=== PATIENT | male | born 1945 | race Caucasian/White ===

== ENCOUNTER 2016-11-04 13:53 | Emergency (ER) | payer MEDICARE, OTHER ==
[~2016-11-04] VITALS: Ht 172.7 cm; Wt 102.1 kg
--- NOTE | 2016-11-04 15:40 | Diagnostic Imaging Report ---
Indication: Cough Technique: One view of the chest Comparison: none Findings: The heart is enlarged. Lungs and pleural spaces are clear. Impression: Cardiomegaly. No acute process
[2016-11-04 15:48] VITALS: BP 65/86
[2016-11-04 15:51] LABS: BASOPHILS % (AUTO) 1.2 % (0.0-2.0); EOSINOPHILS % (AUTO) 2.2 % (0.0-3.0); LYMPHOCYTES % (AUTO) 9.4 % (20.0-45.0); MEAN CORPUSCULAR HEMOGLOBIN 29.2 PG (27.0-31.0); MEAN CORPUSCULAR HGB CONC 31.9 G/DL (32.0-36.0); MEAN CORPUSCULAR VOLUME 92 FL (80-99); MEAN PLATELET VOLUME 7.2 FL (6.5-10.1); MONOCYTES % (AUTO) 13.3 % (1.0-10.0); NEUTROPHILS % (AUTO) 73.9 % (45.0-75.0); PLATELET COUNT 231 K/UL (150-450); RED BLOOD COUNT 3.01 M/UL (4.70-6.10); RED CELL DISTRIBUTION WIDTH 13.1 % (11.6-14.8); WHITE BLOOD COUNT 5.4 K/UL (4.8-10.8)
[2016-11-04 16:07] LABS: ALBUMIN/GLOBULIN RATIO 1.2 (1.0-2.7); CALCIUM 7.1 mg/dL (8.6-10.2); POTASSIUM 4.8 mEQ/L (3.4-4.9); TOTAL PROTEIN 6.7 g/dL (6.6-8.7)
[2016-11-04 16:08] LABS: TROPONIN I < 0.30 ng/mL (<=0.30)
[2016-11-04 16:18] LABS: INR 1.1 (0.9-1.1); PROTHROMBIN TIME 11.3 SEC (9.30-11.50)
[2016-11-04 16:29] LABS: CKMB 6.3 ng/mL (< 6.7)
[2016-11-04] MEDS ORDERED: DOXYCYCLINE MO100 MG ORAL (17:19)
[2016-11-04 17:28] VITALS: BP 65/86
--- NOTE | 2016-11-04 19:06 | Emergency Room Report ---
History of Present Illness General Chief Complaint: Skin Rash/Abscess Source: Medical Record Present Illness HPI 71-year-old male presents ED for evaluation. Patient is here for evaluation of infection to his left leg. States he was sent here by PMD for evaluation. Notes redness and swelling to the left leg x10 days. Denies any fevers or chills. Denies pain. Patient states he has history of kidney disease. Was evaluated by welt trimming machine operator yesterday. Was told that he may need dialysis soon. Denies any chest pain or shortness of breath. No other aggravating or relieving factors. Denies any other associated symptoms Allergies: Coded Allergies: No Known Allergies (Unverified , 11/04/16) Patient History Past Medical History: DM Past Surgical History: none Pertinent Family History: none Social History: Denies: alcohol use, drug use, smoking Immunizations: UTD Reviewed Nursing Documentation: PMH: Agreed, PSxH: Agreed Nursing Documentation-PMH Past Medical History: No History, Except For Hx Diabetes: Yes Review of Systems All Other Systems: negative except mentioned in HPI Physical Exam Vital Signs Date Time Temp Pulse Resp B/P Pulse Ox O2 Delivery O2 Flow Rate FiO2 11/04/16 14:17 98.1 81 18 135/85 92 Room Air 11/04/16 15:48 2.0 Sp02 EP Interpretation: reviewed, normal General Appearance: no apparent distress, alert, GCS 15, non-toxic Head: normocephalic Eyes: bilateral eye PERRL, bilateral eye normal inspection ENT: normal ENT inspection Neck: normal inspection Respiratory: chest non-tender, lungs clear, normal breath sounds, speaking full sentences Cardiovascular #1: regular rate, rhythm, no edema Gastrointestinal: normal bowel sounds, non tender, soft, non-distended, no guarding, no rebound Rectal: deferred Genitourinary: no CVA tenderness Musculoskeletal: swelling - 2+ pitting edema Neurologic: alert, oriented x3, responsive, motor strength/tone normal, sensory intact, speech normal Psychiatric: normal inspection Skin: other - 4x4 cm area/induraiton to LLE. no central necrosis. no fluctuance Lymphatic: normal inspection Medical Decision Making Diagnostic Impression: Primary Impression: Cellulitis of leg Qualified Codes: L03.116 - Cellulitis of left lower limb Additional Impression: Chronic kidney disease Qualified Codes: N18.9 - Chronic kidney disease, unspecified ER Course Hospital Course 71-year-old male presents to ED with redness, swelling to LLE. h/o kidney disease Differential diagnoses include: Cellulitis, abscess, rash, ARF, hyperkalemia Clinical course Patient placed on stretcher. After initial history and physical I ordered labs , blood Cx, UA, CXR labs reviewed - no leukocytosis, Hb/Hct stable, BUN/Cr 40/4.0, potassium ok CXR - cardiomegaly I discussed findings with Dr. Minaya who evaluated the patient yesterday. He agrees that patient can be discharged to home at this time. Patient will require outpatient evaluation by vascular surgeon for a fistula for likely dialysis. she prescribed patient bumex Patient will be discharged on antibiotics for the cellulitis on his leg. Diagnosis - cellulitis of leg, CKD Stable and discharged to home with prescription for doxycycline. continue bumex as directed. Followup with PMD. Return to ED symptoms recur or worsen Labs Test 11/04/16 15:30 11/04/16 15:31 Prothrombin Time 11.3 SEC (9.30-11.50) Prothromb Time International Ratio 1.1 (0.9-1.1) Activated Partial Thromboplast Time 30 SEC (23-33) Sodium Level 144 mEQ/L (135-145) Potassium Level 4.8 mEQ/L (3.4-4.9) Chloride Level 101 mEQ/L (98-107) Carbon Dioxide Level 24 mEQ/L (20-30) Anion Gap 19 (5-15) Blood Urea Nitrogen 44 mg/dL (7-23) Creatinine 4.0 mg/dL (0.7-1.2) Estimat Glomerular Filtration Rate 15.0 mL/min (>60) Glucose Level 88 mg/dL (74-106) Lactic Acid Level 0.60 mmol/L (0.66-2.22) Calcium Level 7.1 mg/dL (8.6-10.2) Total Bilirubin 0.4 mg/dL (0.0-1.2) Aspartate Amino Transf (AST/SGOT) 24 U/L (5-40) Alanine Aminotransferase (ALT/SGPT) 18 U/L (3-41) Alkaline Phosphatase 98 U/L (40-129) Total Creatine Kinase 716 U/L (38-174) Creatine Kinase MB 6.3 ng/mL (< 6.7) Creatine Kinase MB Relative Index 0.8 Troponin I < 0.30 ng/mL (<=0.30) Total Protein 6.7 g/dL (6.6-8.7) Albumin 3.7 g/dL (3.5-5.2) Globulin 3.0 g/dL Albumin/Globulin Ratio 1.2 (1.0-2.7) White Blood Count 5.4 K/UL (4.8-10.8) Red Blood Count 3.01 M/UL (4.70-6.10) Hemoglobin 8.8 G/DL (14.2-18.0) Hematocrit 27.5 % (42.0-52.0) Mean Corpuscular Volume 92 FL (80-99) Mean Corpuscular Hemoglobin 29.2 PG (27.0-31.0) Mean Corpuscular Hemoglobin Concent 31.9 G/DL (32.0-36.0) Red Cell Distribution Width 13.1 % (11.6-14.8) Platelet Count 231 K/UL (150-450) Mean Platelet Volume 7.2 FL (6.5-10.1) Neutrophils (%) (Auto) 73.9 % (45.0-75.0) Lymphocytes (%) (Auto) 9.4 % (20.0-45.0) Monocytes (%) (Auto) 13.3 % (1.0-10.0) Eosinophils (%) (Auto) 2.2 % (0.0-3.0) Basophils (%) (Auto) 1.2 % (0.0-2.0) Chest X-Ray Diagnostic Results EP Interpretation: No Findings: no consolidation, no effusion, no pneumothorax, no acute cardiopulmonary disease, other - cardiomegaly Number of Views: 1 Last Vital Signs Date Time Temp Pulse Resp B/P Pulse Ox O2 Delivery O2 Flow Rate FiO2 11/04/16 17:28 98.2 78 24 65/86 95 Nasal Cannula 2.0 Status: improved Disposition: HOME, SELF-CARE Condition: Stable Scripts Doxycycline Monohydrate* (DOXYCYCLINE MONOHYDRATE*) 100 Mg Capsule 100 MG ORAL Q12H, #14 CAP 0 Refills Prov: JOEL MIRAMONTES M.D. 11/04/16 Patient Instructions: Cellulitis, [id number] JOEL MIRAMONTES M.D. Nov 04, 2016 19:06
== END 2016-11-04 17:28 | disposition home or self-care (01) ==
LOC: EMR 14:50
DX: L03.116 Cellulitis of left lower limb (principal); N18.9 Chronic kidney disease, unspecified; E11.9 Type 2 diabetes mellitus without complications
CPT/HCPCS: 36415; 71010; 80053; 82550; 82553; 83605; 84484; 85025; 85610; 85730; 87040; 99283

== ENCOUNTER 2017-05-04 11:04 | Emergency (ER) | payer MEDICARE ==
[~2017-05-04] VITALS: Ht 172.7 cm; Wt 88.5 kg
[~2017-05-04 11:04] MED LIST: DOXYCYCLINE MO100 MG ORAL
[2017-05-04 11:21] VITALS: BP 118/75
[2017-05-04] MEDS ORDERED: Lidocaine 1% 10mg/ml/EPI 0.01mg/ml 50ml INJ ONE (11:30)
[2017-05-04] MEDS ORDERED: Lidocaine 1% 10mg/ml/Epi 0.005mg/ml 30ml vial INJ ONE (11:45)
[2017-05-04] MEDS ORDERED: KEFLEX500 MG ORAL (12:19)
[2017-05-04] MEDS ORDERED: Bacitracin Oint UD TOPIC ONE ×2 (12:26→12:45)
[2017-05-04 12:36] VITALS: BP 118/75
[2017-05-04] MEDS ORDERED: Bacitracin Oint 15gm Tube TOPIC SCH (13:00)
--- NOTE | 2017-05-04 14:24 | Emergency Room Report ---
History of Present Illness General Chief Complaint: Skin Rash/Abscess Source: Patient, Medical Record Present Illness HPI Patient's 72-year-old male who presented after increased right-sided facial swelling as well as pain. The patient gradual onset of symptoms about 3 days. He denied any fever. Patient had prior history of a lesion to that area which had been present for approximately year. The patient had not been having any severe headaches. He had prior history of chronic renal disease. Patient states that he had been gradually worsening pain. He was seen by an outside physician who diagnosed him as shingles. Allergies: Coded Allergies: No Known Allergies (Unverified , 11/04/16) Patient History Past Medical History: see triage record Reviewed Nursing Documentation: PMH: Agreed, PSxH: Agreed Nursing Documentation-PMH Past Medical History: No History, Except For Hx Hypertension: Yes Hx Diabetes: Yes Review of Systems All Other Systems: negative except mentioned in HPI Physical Exam Vital Signs Date Time Temp Pulse Resp B/P Pulse Ox O2 Delivery O2 Flow Rate FiO2 05/04/17 11:08 97.9 75 16 114/77 97 Room Air General Appearance: well appearing, no apparent distress, alert, GCS 15, non- toxic Head: normocephalic, atraumatic ENT: hearing grossly normal, normal voice Neck: full range of motion, supple Respiratory: no respiratory distress, speaking full sentences Gastrointestinal: normal inspection, non tender, soft Musculoskeletal: no calf tenderness Neurologic: normal inspection, alert, oriented x3, responsive, normal gait Psychiatric: mood/affect normal Skin: other - right side forehead with large lesion, c/w a infected sebaceous cyst Procedures Incision and Drainage Incision and Drainage : Consent: Verbal Site: forehead Blade Size: 11 I & D Procedure: betadine prep, sterile drapes applied, sterile dressing applied Wound Location: face Wound's Depth, Shape: linear Wound Length (cm): 1 Wound Explored: clean Anesthesia: Lidocaine w/ Epi Patient Tolerated: Well Complications: None Medical Decision Making Diagnostic Impression: Primary Impression: Infected sebaceous cyst ER Course Patient presented for skin rash. Differential diagnosis included was not limited to abscess, cellulitis, folliculitis. Patient was given prescription for oral antibiotics. Drained a large amount of cheese consistent with sebaceous cyst material. The patient is advised to follow up with primary care doctor in 1-2 days. Patient is advised to return if any worsening condition or if any changes in status that are concerning. Last Vital Signs Date Time Temp Pulse Resp B/P Pulse Ox O2 Delivery O2 Flow Rate FiO2 05/04/17 12:36 97.7 78 15 118/75 98 Room Air Status: improved Disposition: HOME, SELF-CARE Condition: Stable Scripts Cephalexin* (KEFLEX*) 500 Mg Capsule 500 MG ORAL Q6H, #28 CAP 0 Refills Prov: Demarco Escobar 05/04/17 Patient Instructions: Sebaceous Cyst Removal Demarco Escobar May 04, 2017 14:24
== END 2017-05-04 12:36 | disposition home or self-care (01) ==
LOC: EMR 12:08
DX: L72.3 Sebaceous cyst (principal); I10 Essential (primary) hypertension; E11.9 Type 2 diabetes mellitus without complications
CPT/HCPCS: 10060; 99283

== ENCOUNTER 2017-06-06 08:38 | Emergency (ER) | payer MEDICARE ==
[~2017-06-06] VITALS: Ht 172.7 cm; Wt 86.2 kg
[~2017-06-06 08:38] MED LIST changes: +KEFLEX500 MG ORAL
[2017-06-06 08:52] VITALS: BP 167/98
[2017-06-06] MEDS ORDERED: GABAPENTIN300 MG ORAL (08:56)
[2017-06-06] MEDS ORDERED: FOLIC ACID1 M1 PO (08:56)
[2017-06-06] MEDS ORDERED: RENVELA800 MG ORAL (08:56)
[2017-06-06] MEDS ORDERED: APRESOLINE100 MG ORAL (08:56)
[2017-06-06] MEDS ORDERED: B-6200 MG PO (08:56)
[2017-06-06] MEDS ORDERED: B-12500 MC1 PO (08:56)
[2017-06-06] MEDS ORDERED: BUMETANIDE2 MG ORAL (08:56)
[2017-06-06] MEDS ORDERED: NORVASC5 MG ORAL (08:56)
[2017-06-06] MEDS ORDERED: DOXAZOSIN MESYLA1 MG ORAL (08:56)
--- NOTE | 2017-06-06 09:13 | Emergency Room Report ---
History of Present Illness General Chief Complaint: Pain Source: Patient Present Illness HPI 72-year-old male with history of hypertension, end-stage renal disease not on dialysis yet, history of Hodgkin's lymphoma status post abdominal resection 2002 , presenting with twitching and back pain. Patient states that he has a history of low calcium, take supplements, last week he had a "" bad twitch" which caused him to fall onto his side, hurt his back. pt states he hit his head , +loc <1 min. Patient states for one week pain in back was so severe that he could not get out of bed because of the pain, but was still able to move his legs. Patient states that he talked to his doctor who did not prescribe him any medications without seeing him, so patient states that he has been taking Tylenol with relief. Patient states that now back pain has improved and he has been able to walk normally. Patient denying any numbness weakness or tingling to legs after a fall, denies any urinary retention/incont. Patient denies any headache nausea or vomiting since the fall. no ams since fall. has otherwise been eating/drinking normally. Patient states that he still intermittently gets the random twitches.not on blood thinners Allergies: Coded Allergies: No Known Allergies (Unverified , 11/04/16) Patient History Past Medical History: see triage record Past Surgical History: other - abd surgery 2002 Pertinent Family History: none Reviewed Nursing Documentation: PMH: Agreed, PSxH: Agreed Nursing Documentation-PMH Hx Hypertension: Yes Review of Systems All Other Systems: negative except mentioned in HPI Physical Exam Vital Signs Date Time Temp Pulse Resp B/P (MAP) Pulse Ox O2 Delivery O2 Flow Rate FiO2 06/06/17 08:42 97.3 74 17 131/73 99 Room Air Sp02 EP Interpretation: reviewed, normal General Appearance: normal inspection, well appearing, no apparent distress, alert, GCS 15, non-toxic Head: normocephalic - minimal/resolving/non boddy hematoma L back of head Eyes: bilateral eye normal inspection, bilateral eye PERRL, bilateral eye EOMI ENT: normal ENT inspection, normal pharynx, normal voice, moist mucus membranes Neck: normal inspection, full range of motion, supple, no bony tend Respiratory: normal inspection, lungs clear, normal breath sounds, no respiratory distress, no retraction, no wheezing, speaking full sentences, chest symmetrical Cardiovascular #1: normal inspection, regular rate, rhythm, no edema, normal capillary refill Cardiovascular #2: 2+ radial (R), 2+ radial (L) Gastrointestinal: normal inspection, non tender, soft, non-distended, no guarding, other - well healed vertical scar on abdomen, ventral hernia reducible Genitourinary: no CVA tenderness Musculoskeletal: normal inspection, normal range of motion, other - no paraspinal or midline tenderneess of back Neurologic: normal inspection, alert, oriented x3, responsive, teacher emotionally impaired III-XII nml as tested, motor strength/tone normal, sensory intact, normal gait, speech normal, other - motor strength 5/5 all ext, good rectal tone Psychiatric: normal inspection, judgement/insight normal, memory normal Skin: normal inspection, normal color, no rash, warm/dry, well hydrated, normal turgor Medical Decision Making Diagnostic Impression: Primary Impression: Back pain Additional Impression: Chronic renal failure ER Course 72 yo male with back pain after fall, twitches DDX: Twitches could be secondary to electrolyte imbalance such as hypocalcemia given patient's history Back pain musculoskeletal, rule out compression fracture. At this time not concerned with cauda equina, or cord compression given benign history and physical Plan: Obtain labs, EKG Lumbar x-ray Patient offered pain medications for back pain, but states that pain is now resolved, we'll not give any meds at this time ER course: Patient has remained stable during ED stay. Labs are significant for chronic kidney disease, calcium normal. Disposition: Patient is to be discharged to home. Patient is instructed to follow up with their primary care doctor within 5 days. Patient states that he already has appointments, and he will likely be starting dialysis sometimes in Strict return precautions discussed with patient such as fever, chills, worsening/severe pain, nausea, vomiting, which may indicate severe illness. Patient verbalizes understanding and agrees with plan. Please note that this Emergency Department Report was dictated using [employer] model builder technology software, occasionally this can lead to erroneous entry secondary to interpretation by the dictation equipment Laboratory Tests Test 06/06/17 09:40 White Blood Count 8.6 K/UL (4.8-10.8) Red Blood Count 3.46 M/UL (4.70-6.10) L Hemoglobin 10.6 G/DL (14.2-18.0) L Hematocrit 31.9 % (42.0-52.0) L Mean Corpuscular Volume 92 FL (80-99) Mean Corpuscular Hemoglobin 30.7 PG (27.0-31.0) Mean Corpuscular Hemoglobin Concent 33.4 G/DL (32.0-36.0) Red Cell Distribution Width 11.8 % (11.6-14.8) Platelet Count 233 K/UL (150-450) Mean Platelet Volume 6.7 FL (6.5-10.1) Neutrophils (%) (Auto) 73.8 % (45.0-75.0) Lymphocytes (%) (Auto) 12.9 % (20.0-45.0) L Monocytes (%) (Auto) 10.5 % (1.0-10.0) H Eosinophils (%) (Auto) 1.6 % (0.0-3.0) Basophils (%) (Auto) 1.2 % (0.0-2.0) Sodium Level 141 mEQ/L (135-145) Potassium Level 3.3 mEQ/L (3.4-4.9) L Chloride Level 94 mEQ/L (98-107) L Carbon Dioxide Level 28 mEQ/L (20-30) Anion Gap 19 (5-15) H Blood Urea Nitrogen 110 mg/dL (7-23) H Creatinine 6.8 mg/dL (0.7-1.2) H Estimate Glomerular Filtration Rate 8.1 mL/min (>60) Glucose Level 159 mg/dL (74-106) H Calcium Level 10.2 mg/dL (8.6-10.2) Total Bilirubin 0.3 mg/dL (0.0-1.2) Aspartate Amino Transferase (AST) 26 U/L (5-40) Alanine Aminotransferase (ALT) 22 U/L (3-41) Alkaline Phosphatase 77 U/L (40-129) Total Protein 7.8 g/dL (6.6-8.7) Albumin 4.2 g/dL (3.5-5.2) Globulin 3.6 g/dL Albumin/Globulin Ratio 1.1 (1.0-2.7) EKG Diagnostic Results Rate: normal Rhythm: NSR ST Segments: no acute changes Rhythm Strip Diag. Results EP Interpretation: yes Rate: 66 Rhythm: NSR, no PVC's, no ectopy Last Vital Signs Date Time Temp Pulse Resp B/P (MAP) Pulse Ox O2 Delivery O2 Flow Rate FiO2 06/06/17 08:42 97.3 74 17 131/73 99 Room Air Disposition: HOME, SELF-CARE Condition: Stable Patient Instructions: Back Pain, Adult, [id number], Chronic Kidney Disease, [id number] Additional Instructions: Please follow up with your primary care doctor within 3 days. Please come back to the emergency room if you are having severe/worsening pain, headache, chest pain, shortness of breath, or intractable nausea or vomiting, weakness of your legs, inability to urinate. Valeri Carter M.D. Jun 06, 2017 09:13
[2017-06-06 09:47] LABS: BASOPHILS % (AUTO) 1.2 % (0.0-2.0); EOSINOPHILS % (AUTO) 1.6 % (0.0-3.0); LYMPHOCYTES % (AUTO) 12.9 % (20.0-45.0); MEAN CORPUSCULAR HEMOGLOBIN 30.7 PG (27.0-31.0); MEAN CORPUSCULAR HGB CONC 33.4 G/DL (32.0-36.0); MEAN CORPUSCULAR VOLUME 92 FL (80-99); MEAN PLATELET VOLUME 6.7 FL (6.5-10.1); MONOCYTES % (AUTO) 10.5 % (1.0-10.0); NEUTROPHILS % (AUTO) 73.8 % (45.0-75.0); PLATELET COUNT 233 K/UL (150-450); RED BLOOD COUNT 3.46 M/UL (4.70-6.10); RED CELL DISTRIBUTION WIDTH 11.8 % (11.6-14.8); WHITE BLOOD COUNT 8.6 K/UL (4.8-10.8)
[2017-06-06 10:07] LABS: ALBUMIN/GLOBULIN RATIO 1.1 (1.0-2.7); CALCIUM 10.2 mg/dL (8.6-10.2); CREATININE 6.8 mg/dL (0.7-1.2); GLOMERULAR FILTRATION RATE 8.1 mL/min (>60); POTASSIUM 3.3 mEQ/L (3.4-4.9); TOTAL PROTEIN 7.8 g/dL (6.6-8.7)
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
[2017-06-06 11:00] VITALS: BP 138/68
[2017-06-06 11:17] VITALS: BP 138/68
--- NOTE | 2017-06-07 17:59 | Cardiology Report ---
APPROVED REPORT EKG Measurement Heart [id number] ME P71 [id number] Sinus rhythm tremor artifact Left axis deviation Abnormal ECG
== END 2017-06-06 11:17 | disposition home or self-care (01) ==
LOC: EMR 09:06
DX: M54.9 Dorsalgia, unspecified (principal); I12.0 Hypertensive chronic kidney disease with stage 5 chronic kidney disease or end stage renal disease; N18.6 End stage renal disease; Z99.2 Dependence on renal dialysis; Z85.72 Personal history of non-Hodgkin lymphomas
CPT/HCPCS: 36415; 72110; 80053; 82330; 85025; 93005; 99284

== ENCOUNTER 2017-06-08 18:55 | Emergency (ER) | payer MEDICARE ==
[~2017-06-08] VITALS: Ht 180.3 cm; Wt 90.7 kg
[~2017-06-08 18:55] MED LIST changes: +APRESOLINE100 MG ORAL; +B-12500 MC1 PO; +B-6200 MG PO; +BUMETANIDE2 MG ORAL; +DOXAZOSIN MESYLA1 MG ORAL; +FOLIC ACID1 M1 PO; +GABAPENTIN300 MG ORAL; +NORVASC5 MG ORAL; +RENVELA800 MG ORAL
--- NOTE | 2017-06-08 19:14 | Emergency Room Report ---
History of Present Illness General Chief Complaint: Multiple Trauma/Fall Source: Patient, EMS Present Illness HPI Patient is 72-year-old male presented after a fall. Patient had complaints of pain to the left side of his back. He reported falling onto a toilet. He denied loss of consciousness. He reports having pain worse with movement. He began having a shaking sensation prior to falling.Patient's prior history of diabetes which is diet controlled currently as well as renal disease. And hypertension Allergies: Coded Allergies: No Known Allergies (Unverified , 11/04/16) Patient History Past Medical History: see triage record Reviewed Nursing Documentation: PMH: Agreed, PSxH: Agreed Nursing Documentation-PMH Hx Cardiac Problems: No - RENAL FAILURE/TREMORS Hx Hypertension: Yes Review of Systems All Other Systems: negative except mentioned in HPI Physical Exam Vital Signs Date Time Temp Pulse Resp B/P (MAP) Pulse Ox O2 Delivery O2 Flow Rate FiO2 06/08/17 18:49 98.4 83 16 148/72 100 Room Air Sp02 EP Interpretation: reviewed, normal General Appearance: normal inspection, alert, GCS 15, moderate distress Head: atraumatic ENT: normal ENT inspection, hearing grossly normal, normal voice Neck: normal inspection, full range of motion, supple, no bony tend Respiratory: other - bruising to left posterior chest wall Cardiovascular #1: regular rate, rhythm, no edema Gastrointestinal: normal inspection, normal bowel sounds, non tender, soft, no guarding, no hernia Genitourinary: no CVA tenderness Musculoskeletal: normal inspection, back normal, normal range of motion Neurologic: normal inspection, alert, responsive, speech normal Psychiatric: normal inspection, judgement/insight normal, mood/affect normal Skin: normal inspection, other - bruising to left chest wall Medical Decision Making Diagnostic Impression: Primary Impression: Fall Additional Impressions: Chronic kidney disease Left rib fracture Uremia ER Course Patient is a 72-year-old male who presented after a fall. Differential diagnosis included wasn't limited to fracture, contusion, pneumothorax among others.Because of complexity of patient's case laboratory testing and imaging studies were ordered.Laboratory studies were notable for elevation of the patient's BUN/creatinine with a BUN of 111 and creatinine greater than 7. Patient was noted to have the pain to the left flank. He was having intermittent myoclonic jerking which precipitated this fall. Patient was noted to have the pain to his back. He was given IV morphine and as well as Toradol 15 mg for pain. Patient was discussed with Dr. Kenney was capitated physician [facility] CT the chest read by radiology showed 10th rib fracture. Laboratory Tests Test 06/08/17 19:43 White Blood Count 12.3 K/UL (4.8-10.8) H Red Blood Count 3.16 M/UL (4.70-6.10) L Hemoglobin 10.4 G/DL (14.2-18.0) L Hematocrit 29.3 % (42.0-52.0) L Mean Corpuscular Volume 93 FL (80-99) Mean Corpuscular Hemoglobin 32.9 PG (27.0-31.0) H Mean Corpuscular Hemoglobin Concent 35.4 G/DL (32.0-36.0) Red Cell Distribution Width 12.0 % (11.6-14.8) Platelet Count 209 K/UL (150-450) Mean Platelet Volume 6.4 FL (6.5-10.1) L Neutrophils (%) (Auto) 85.4 % (45.0-75.0) H Lymphocytes (%) (Auto) 7.1 % (20.0-45.0) L Monocytes (%) (Auto) 6.5 % (1.0-10.0) Eosinophils (%) (Auto) 0.4 % (0.0-3.0) Basophils (%) (Auto) 0.7 % (0.0-2.0) Sodium Level 143 mEQ/L (135-145) Potassium Level 3.3 mEQ/L (3.4-4.9) L Chloride Level 93 mEQ/L (98-107) L Carbon Dioxide Level 28 mEQ/L (20-30) Anion Gap 22 (5-15) H Blood Urea Nitrogen 114 mg/dL (7-23) H Creatinine 7.1 mg/dL (0.7-1.2) H Estimate Glomerular Filtration Rate 7.7 mL/min (>60) Glucose Level 173 mg/dL (74-106) H Calcium Level 9.3 mg/dL (8.6-10.2) Total Bilirubin 0.4 mg/dL (0.0-1.2) Aspartate Amino Transferase (AST) 26 U/L (5-40) Alanine Aminotransferase (ALT) 21 U/L (3-41) Alkaline Phosphatase 87 U/L (40-129) Troponin I < 0.30 ng/mL (<=0.30) Total Protein 8.0 g/dL (6.6-8.7) Albumin 4.3 g/dL (3.5-5.2) Globulin 3.7 g/dL Albumin/Globulin Ratio 1.1 (1.0-2.7) Last Vital Signs Date Time Temp Pulse Resp B/P (MAP) Pulse Ox O2 Delivery O2 Flow Rate FiO2 06/08/17 18:49 98.4 83 16 148/72 100 Room Air Status: unchanged Disposition: XFER SHT-TRM HOSP Condition: Serious Demarco Escobar Jun 08, 2017 19:14
[2017-06-08] MEDS ORDERED: Ketorolac 30mg Inj IV ONE (19:15)
[2017-06-08] MEDS ORDERED: Morphine Sulfate 2mg/ml Inj IVP ONE ×2 (19:15→20:00)
[2017-06-08 20:06] LABS: MEAN CORPUSCULAR HEMOGLOBIN 32.9 PG (27.0-31.0); MEAN CORPUSCULAR HGB CONC 35.4 G/DL (32.0-36.0); MEAN CORPUSCULAR VOLUME 93 FL (80-99); MEAN PLATELET VOLUME 6.4 FL (6.5-10.1); PLATELET COUNT 209 K/UL (150-450); RED BLOOD COUNT 3.16 M/UL (4.70-6.10); WHITE BLOOD COUNT 12.3 K/UL (4.8-10.8)
[2017-06-08 20:08] LABS: NEUTROPHILS % (AUTO) 85.4 % (45.0-75.0)
[2017-06-08 20:09] LABS: BASOPHILS % (AUTO) 0.7 % (0.0-2.0); EOSINOPHILS % (AUTO) 0.4 % (0.0-3.0); LYMPHOCYTES % (AUTO) 7.1 % (20.0-45.0); MONOCYTES % (AUTO) 6.5 % (1.0-10.0)
[2017-06-08 20:17] VITALS: BP 110/67
[2017-06-08 20:32] LABS: ALBUMIN/GLOBULIN RATIO 1.1 (1.0-2.7); CALCIUM 9.3 mg/dL (8.6-10.2); CREATININE 7.1 mg/dL (0.7-1.2); GLOMERULAR FILTRATION RATE 7.7 mL/min (>60); POTASSIUM 3.3 mEQ/L (3.4-4.9)
[2017-06-08 21:00] LABS: TROPONIN I < 0.30 ng/mL (<=0.30)
[2017-06-08 23:56] VITALS: BP 112/62
[2017-06-09] MEDS ORDERED: Morphine Sulfate 4mg/ml Inj IVP ONE (00:30)
[2017-06-09] MEDS ORDERED: Morphine Sulfate 4mg/ml Inj ONE (00:33)
[2017-06-09 00:45] VITALS: BP 112/62
--- NOTE | 2017-06-09 10:26 | Diagnostic Imaging Report ---
Indication: Chest pain Technique: Continuous helical transaxial imaging of the chest was obtained from the thoracic inlet to the upper abdomen. No intravenous contrast was administered. Coronal 2-D reformats were also obtained. Total Dose length Product (DLP): [address] Dose Index Volume (CTDIvol): 24.9, 0.15 mGy Comparison: none Findings: The heart is enlarged. Coronary and aortic calcifications, noted. No adenopathy or abnormal fluid collections demonstrated within the chest. Moderate reticular densities are demonstrated within the right lung in both portions of the upper and lower lobes. Findings could be on the basis of infiltrate or acute interstitial pneumonitis. Please correlate clinically. Interstitial disease due to hemodynamic causes such as heart failure or less likely given the asymmetric appearance in patchy distribution which suggests more of an inflammatory process. There is also some evidence of subsegmental atelectasis at the lung bases but worse on the right. Breathing motion limits evaluation. The visualized part of the upper abdomen shows pneumobilia. There is air in the gallbladder as well. Impression: Interstitial disease in the right lung. Suspect infiltrate or inflammatory process. Pneumobilia. Cardiomegaly and atherosclerotic disease. Limited evaluation due to motion. [facility] has communicated the preliminary results to the Emergency Department. Their findings are largely concordant with this report. The CT scanner at [facility] is accredited by the [employer] and the scans are performed using dose optimization techniques as appropriate to a performed exam including Automatic Exposure control.
== END 2017-06-09 00:45 | disposition short-term general hospital (02) ==
LOC: EDBD 18:55 → EMR 20:07
DX: S22.32XA Fracture of one rib, left side, initial encounter for closed fracture (principal); I12.9 Hypertensive chronic kidney disease with stage 1 through stage 4 chronic kidney disease, or unspecified chronic kidney disease; N18.9 Chronic kidney disease, unspecified; W19.XXXA Unspecified fall, initial encounter; Y92.002 Bathroom of unspecified non-institutional (private) residence as the place of occurrence of the external cause; R25.1 Tremor, unspecified
CPT/HCPCS: 36415; 71250; 80053; 84484; 85025; 96374; 96375; 96376; 99285; J1885; J2270